=== PATIENT | female | born 1940 | race Asian ===

== ENCOUNTER 2017-08-28 06:13 | Day surgery (SDC) | payer MEDICARE, OTHER ==
[~2017-08-28] VITALS: Ht 152.4 cm; Wt 69.1 kg
[~2017-08-28 06:13] MED LIST: DICLOFENAC SODIUM 0.1% 2.5 ML OPHTHALMIC SOLUTION ONE; MOXIFLOXACIN HCL 0.5% 3 ML OPHTHALMIC SOLUTION ONE; PHENYLEPHRINE HCL 2.5% 2 ML OPHTHALMIC SOLUTION ONE; RINGERS SOLUTION,LACTATED 500 ML IV ONE; TROPICAMIDE 1% 2 ML OPHTHALMIC SOLUTION ONE
[2017-08-28] MEDS ORDERED: TETRACAINE HCL VISCOUS 0.5% 0.6 ML OPHTHALMIC SOLUTION OD ONE (06:14)
[2017-08-28] MEDS ORDERED: HYALURONATE SODIUM 12 MG/ML 0.8 ML SYRINGE IO ONE (06:14)
[2017-08-28] MEDS ORDERED: POVIDONE-IODINE 10% 15 ML SOLUTION UD TP ONE (06:14)
[2017-08-28] MEDS ORDERED: DEXAMETHASONE SOD PHOS 4 MG/ML VIAL IVP ONE (06:14)
[2017-08-28] MEDS ORDERED: LIDOCAINE HCL/PF 1% 2 ML VIAL IM ONE (06:14)
[2017-08-28] MEDS ORDERED: HYALURONATE SOD/CHONDROITIN SOD 0.5 ML VIAL IO ONE (06:14)
[2017-08-28] MEDS ORDERED: MOXIFLOXACIN HCL 0.5% 3 ML OPHTHALMIC SOLUTION OD ONE (06:30)
[2017-08-28] MEDS ORDERED: DICLOFENAC SODIUM 0.1% 2.5 ML OPHTHALMIC SOLUTION OD ONE (06:30)
[2017-08-28] MEDS ORDERED: RINGERS SOLUTION,LACTATED 500 ML IV ONE (06:30)
[2017-08-28] MEDS ORDERED: 0.9% SODIUM CHLORIDE 10 ML SYRINGE IVP PRN (06:30)
[2017-08-28] MEDS: TROPICAMIDE 1% 2 ML OPHTHALMIC SOLUTION OD SCH ×2 (07:03→07:08)
[2017-08-28] MEDS: PHENYLEPHRINE HCL 2.5% 2 ML OPHTHALMIC SOLUTION OD SCH ×2 (07:03→07:08)
[2017-08-28 07:08] LABS: GLUCOMETER DEV NAME(LOC) SDS 5; GLUCOSE,POINT OF CARE 113 MG/DL (70-110)
[2017-08-28] MEDS ORDERED: MIDAZOLAM HCL 2 MG/2 ML VIAL IVP ONE (12:00)
[2017-08-28] MEDS ORDERED: FentaNYL CITRATE-PF 100 MCG/2 ML VIAL IVP ONE (12:00)
== END 2017-08-28 08:50 | disposition home or self-care (01) ==
LOC: SURGERY 06:13
PROVIDERS: ATTEND Specialist
DX: E11.36 Type 2 diabetes mellitus with diabetic cataract (principal); H25.011 Cortical age-related cataract, right eye; I10 Essential (primary) hypertension; M19.90 Unspecified osteoarthritis, unspecified site; E66.3 Overweight; M06.9 Rheumatoid arthritis, unspecified; Z79.84 Long term (current) use of oral hypoglycemic drugs; Z68.29 Body mass index [BMI] 29.0-29.9, adult; Z79.899 Other long term (current) drug therapy
CPT/HCPCS: 65785; 66984; 82962; 93005; C1780; J1100; J2250; J3010; J3490 ×2; J7120

== ENCOUNTER → 2017-09-10 | Outpatient (CLI) | payer MEDICARE, OTHER | END | disposition home or self-care (01) | LOC: RADPV 13:36 | PROVIDERS: ATTEND Family Medicine | DX: M43.16 Spondylolisthesis, lumbar region (principal); M85.88 Other specified disorders of bone density and structure, other site; R07.9 Chest pain, unspecified; R51 Headache; M25.552 Pain in left hip; M77.8 Other enthesopathies, not elsewhere classified; M46.04 Spinal enthesopathy, thoracic region | CPT/HCPCS: 70140; 71101; 72070; 72100; 73503 ==

== ENCOUNTER 2017-12-11 08:18 | Day surgery (SDC) | payer MEDICARE, OTHER ==
[~2017-12-11] VITALS: Ht 154.9 cm; Wt 71.0 kg
[~2017-12-11 08:18] MED LIST changes: -DICLOFENAC SODIUM 0.1% 2.5 ML OPHTHALMIC SOLUTION ONE; +DICLOFENAC SODIUM 0.1% 2.5 ML OPHTHALMIC SOLUTION OS ONE; -MOXIFLOXACIN HCL 0.5% 3 ML OPHTHALMIC SOLUTION ONE; +MOXIFLOXACIN HCL 0.5% 3 ML OPHTHALMIC SOLUTION OS ONE; -PHENYLEPHRINE HCL 2.5% 2 ML OPHTHALMIC SOLUTION ONE; -TROPICAMIDE 1% 2 ML OPHTHALMIC SOLUTION ONE
[2017-12-11] MEDS ORDERED: HYALURONATE SODIUM 10 MG/ML 0.85 ML SYRINGE IO ONE (08:19)
[2017-12-11] MEDS ORDERED: MIDAZOLAM HCL 2 MG/2 ML VIAL IVP ONE (08:19)
[2017-12-11] MEDS ORDERED: VANCOMYCIN HCL 500 MG/VIAL IV ONE (08:19)
[2017-12-11] MEDS ORDERED: POVIDONE-IODINE 10% 15 ML SOLUTION UD TP ONE (08:19)
[2017-12-11] MEDS ORDERED: BALANCED SALT 15 ML OPHTHALMIC IRRIG.SOLN OS ONE (08:19)
[2017-12-11] MEDS ORDERED: EPINEPHrine 1:1,000 [1 MG/ML] AMP IM ONE (08:19)
[2017-12-11] MEDS ORDERED: TETRACAINE HCL VISCOUS 0.5% 0.6 ML OPHTHALMIC SOLUTION OS ONE (08:19)
[2017-12-11] MEDS ORDERED: FentaNYL CITRATE-PF 100 MCG/2 ML VIAL IVP ONE (08:19)
[2017-12-11] MEDS ORDERED: LIDOCAINE/PF 1% 2 ML VIAL IM ONE (08:19)
[2017-12-11] MEDS ORDERED: 0.9% SODIUM CHLORIDE 10 ML VIAL IVP ONE (08:19)
[2017-12-11] MEDS ORDERED: RINGERS SOLUTION,LACTATED 0 ML IV ONE (08:29)
[2017-12-11] MEDS ORDERED: TROPICAMIDE 1% 2 ML OPHTHALMIC SOLUTION ONE ×2 (08:42→08:55)
[2017-12-11] MEDS ORDERED: PHENYLEPHRINE HCL 2.5% 2 ML OPHTHALMIC SOLUTION ONE ×2 (08:42→08:55)
[2017-12-11] MEDS ORDERED: MOXIFLOXACIN HCL 0.5% 3 ML OPHTHALMIC SOLUTION ONE ×2 (08:42→08:55)
[2017-12-11] MEDS ORDERED: RINGERS SOLUTION,LACTATED 500 ML IV ONE (08:42)
[2017-12-11] MEDS ORDERED: DICLOFENAC SODIUM 0.1% 2.5 ML OPHTHALMIC SOLUTION ONE ×2 (08:42→08:55)
[2017-12-11] MEDS: TROPICAMIDE 1% 2 ML OPHTHALMIC SOLUTION OS SCH ×2 (09:18→09:26)
[2017-12-11] MEDS: PHENYLEPHRINE HCL 2.5% 2 ML OPHTHALMIC SOLUTION OS SCH ×2 (09:18→09:26)
[2017-12-11] MEDS ORDERED: VALS160T2 PO (09:40)
[2017-12-11] MEDS ORDERED: SIMV-260 PO (09:40)
[2017-12-11] MEDS ORDERED: CALC-1085 PO (09:40)
[2017-12-11] MEDS ORDERED: ASPI-1182 PO (09:40)
[2017-12-11] MEDS ORDERED: TRAM50TA4 PO (09:40)
[2017-12-11] MEDS ORDERED: DSSL PO (09:40)
[2017-12-11] MEDS ORDERED: METF-960 PO (09:40)
[2017-12-11] MEDS ORDERED: MULT-1259 PO (09:40)
[2017-12-11] MEDS ORDERED: [UNRECOGNIZED DRUG - CODE] PO (09:40)
[2017-12-11] MEDS ORDERED: ACET-66 PO (09:40)
[2017-12-11 10:04] LABS: GLUCOMETER DEV NAME(LOC) SDS 5; GLUCOSE,POINT OF CARE 99 MG/DL (70-110)
== END 2017-12-11 11:10 | disposition home or self-care (01) ==
LOC: SURGERY 08:18
PROVIDERS: ATTEND Specialist
DX: E11.36 Type 2 diabetes mellitus with diabetic cataract (principal); H25.012 Cortical age-related cataract, left eye; I10 Essential (primary) hypertension; M19.90 Unspecified osteoarthritis, unspecified site; Z79.82 Long term (current) use of aspirin; Z79.891 Long term (current) use of opiate analgesic; Z79.01 Long term (current) use of anticoagulants; Z79.84 Long term (current) use of oral hypoglycemic drugs; Z79.4 Long term (current) use of insulin; Z98.41 Cataract extraction status, right eye; Z98.890 Other specified postprocedural states; Z79.899 Other long term (current) drug therapy
CPT/HCPCS: 65785; 66984; 82962; 93005; C1780; J2250; J3010; J7120; J0171; J3370; J3490

== ENCOUNTER 2018-09-25 16:26 | Inpatient (IN) | payer MEDICARE, OTHER ==
[~2018-09-25] VITALS: Ht 157.5 cm; Wt 67.2 kg
[~2018-09-25 16:26] MED LIST changes: +ACET-66 PO; +ASPI-1182 PO; +CALC-1085 PO; -DICLOFENAC SODIUM 0.1% 2.5 ML OPHTHALMIC SOLUTION OS ONE; +DSSL PO; +METF-960 PO; -MOXIFLOXACIN HCL 0.5% 3 ML OPHTHALMIC SOLUTION OS ONE; +MULT-1259 PO; -RINGERS SOLUTION,LACTATED 500 ML IV ONE; +SIMV-260 PO; +TRAM50TA4 PO; +VALS160T2 PO; +[UNRECOGNIZED DRUG - CODE] PO
[2018-09-25 16:39] LABS: GLUCOSE,POINT OF CARE 89 MG/DL (70-110)
[2018-09-25] MEDS ORDERED: RANO500T3 PO (16:45)
[2018-09-25] MEDS ORDERED: ROSU10TA22 PO (16:45)
[2018-09-25] MEDS ORDERED: DULO60CA44 PO (16:45)
[2018-09-25] MEDS ORDERED: AMLO10TA7 PO (16:45)
[2018-09-25] MEDS ORDERED: METO50 PO (16:45)
[2018-09-25] MEDS ORDERED: DONE10TA8 PO (16:45)
[2018-09-25] MEDS ORDERED: LORA10TA7 PO (16:45)
[2018-09-25] MEDS ORDERED: TOLT2CAP27 PO (16:45)
[2018-09-25 17:28] LABS: BASOPHILS % (AUTO) 0.9 % (0.0-2.0); EOSINOPHILS % (AUTO) 2.3 % (1.0-6.0); HEMATOCRIT 39.5 % (36-46); HEMOGLOBIN 12.9 g/dL (12.0-16.0); LYMPHOCYTES % (AUTO) 43.8 % (22.0-44.0); MEAN CORPUSCULAR HEMOGLOBIN 30.1 pg (26.0-34.0); MEAN CORPUSCULAR HGB CONC 32.6 G/dL (31.0-37.0); MEAN CORPUSCULAR VOLUME 92 fL (80-100); MONOCYTES # (AUTO) 0.7 K/uL (0.1-1.0); MONOCYTES % (AUTO) 10.3 % (2.0-9.0); NEUTROPHILS % (AUTO) 42.7 % (40.0-70.0); PLATELET COUNT (AUTO) 205 K/uL (150-450); RED BLOOD CELL COUNT(AUTO) 4.28 MIL/uL (4.00-5.20); RED CELL DISTRIBUTION WIDTH 13.6 % (11.5-14.5)
[2018-09-25 17:33] LABS: CALCIUM, TOTAL 9.9 mg/dL (8.8-10.5); CREATININE 0.96 mg/dL (0.60-1.30); POTASSIUM 3.8 mmol/L (3.5-5.1)
[2018-09-25 17:39] LABS: ALBUMIN 4.2 g/dL (3.4-5.0); BILIRUBIN,TOTAL 0.5 mg/dL (0.1-1.0); TOTAL PROTEIN, SERUM 7.7 g/dL (6.4-8.2)
[2018-09-25 17:51] LABS: APPEARANCE,URINE CLOUDY (CLEAR); BILIRUBIN,URINE NEGATIVE (NEGATIVE); GLUCOSE, URINE (UA) NEGATIVE (NEGATIVE); KETONES,URINE NEGATIVE (NEGATIVE); LEUKOCYTE ESTERASE ,URINE MODERATE (NEGATIVE); NITRATE,URINE POSITIVE (NEGATIVE); OCCULT BLOOD,URINE NEGATIVE (NEGATIVE); PH,URINE 6.5 (5.0-8.0); PROTEIN,URINE NEGATIVE (NEGATIVE); UROBILINOGEN,URINE 0.2 mg/dL (<=1.0)
[2018-09-25 17:56] LABS: BACTERIA,URINE Many /HPF (None Seen); RBC,URINE 0-2 /HPF (0-2); SQUAMOUS EPITHELIAL CELL,UR Few /LPF (None Seen)
[2018-09-25] MEDS ORDERED: IOVERSOL 350 MG/ML 100 ML VIAL ONE (18:29)
[2018-09-25] MEDS ORDERED: SODIUM CHLORIDE 0.9% 100 ML ONE (18:30)
[2018-09-25] MEDS ORDERED: ASPIRIN 81 MG CHEWABLE TABLET PO ONE (19:15)
[2018-09-25] MEDS ORDERED: NITROGLYCERIN 2% (1 GM=INCH) PACKET TP ONE (19:15)
[2018-09-25] MEDS ORDERED: CefTRIAXone 1 GM/DEXTROSE 50 ML IV ONE (19:15)
[2018-09-25] MEDS ORDERED: 0.9% SODIUM CHLORIDE 10 ML SYRINGE IVP PRN ×2 (21:00→22:30)
[2018-09-25] MEDS ORDERED: ACETAMINOPHEN 325 MG TABLET PO PRN ×2 (21:00→22:30)
[2018-09-25] MEDS ORDERED: INSULIN LISPRO 100 UNITS/ML SQ PRN (22:15)
[2018-09-25] MEDS ORDERED: TraMADol HCL 50 MG TABLET PO PRN (22:15)
[2018-09-25] MEDS ORDERED: DEXTROSE 50%-WATER 25 GM/50 ML SYRINGE IVP PRN (22:15)
[2018-09-25] MEDS ORDERED: IPRATROPIUM BROMIDE 0.5 MG/2.5 ML NEB SOLUTION NEB PRN (22:30)
[2018-09-25] MEDS ORDERED: MAGNESIUM HYDROXIDE SUSPENSION 30 ML UDCUP PO PRN (22:30)
[2018-09-25] MEDS ORDERED: ALBUTEROL SULFATE 2.5 MG/0.5 ML NEB SOLUTION NEB PRN (22:30)
[2018-09-25] MEDS ORDERED: BISACODYL 10 MG RECTAL RECTAL SUPPOSITORY PR PRN (22:30)
[2018-09-25] MEDS ORDERED: ONDANSETRON HCL 4 MG/2 ML VIAL IVP PRN (22:30)
[2018-09-25] MEDS: HEPARIN SODIUM,PORCINE 5,000 UNITS/ML VIAL SQ SCH (23:52)
[2018-09-26 00:10] VITALS: BP 142/70
[2018-09-26] MEDS: TraMADol HCL 50 MG TABLET PO PRN ×2 (05:04→08:34)
[2018-09-26 05:24] VITALS: BP 140/71
[2018-09-26 06:03] LABS: BASOPHILS % (AUTO) 0.9 % (0.0-2.0); EOSINOPHILS % (AUTO) 2.7 % (1.0-6.0); HEMATOCRIT 36.5 % (36-46); HEMOGLOBIN 11.8 g/dL (12.0-16.0); LYMPHOCYTES # (AUTO) 2.9 K/uL (1.0-4.8); LYMPHOCYTES % (AUTO) 43.9 % (22.0-44.0); MEAN CORPUSCULAR HGB CONC 32.5 G/dL (31.0-37.0); MEAN CORPUSCULAR VOLUME 93 fL (80-100); MONOCYTES # (AUTO) 0.6 K/uL (0.1-1.0); MONOCYTES % (AUTO) 8.8 % (2.0-9.0); NEUTROPHILS # (AUTO) 2.9 K/uL (1.8-7.7); NEUTROPHILS % (AUTO) 43.7 % (40.0-70.0); PLATELET COUNT (AUTO) 200 K/uL (150-450); RED BLOOD CELL COUNT(AUTO) 3.95 MIL/uL (4.00-5.20)
[2018-09-26 06:14] LABS: ALANINE AMINOTRANSFERASE 25 U/L (12-78); ALBUMIN 3.6 g/dL (3.4-5.0); ALKALINE PHOSPHATASE 61 U/L (46-116); ANION GAP 10 mmol/L (8-16); ASPARTATE AMINOTRANSFERASE 17 U/L (15-37); BILIRUBIN,TOTAL 0.6 mg/dL (0.1-1.0); CALCIUM, TOTAL 9.5 mg/dL (8.8-10.5); CARBON DIOXIDE 26 mmol/L (22-29); CHLORIDE 103 mmol/L (98-107); CHOL/HDL RATIO 2.1 (3.9-5.7); CHOLESTEROL 114 mg/dL (131-200); CREATININE 0.75 mg/dL (0.60-1.30); GLUCOSE,RANDOM 101 mg/dL (70-110); HDL CHOLESTEROL 54 mg/dL (40-60); LDL CHOL (CALC.) 38 mg/dL (0-130); POTASSIUM 3.6 mmol/L (3.5-5.1); SODIUM SERUM 139 mmol/L (136-145); TOTAL PROTEIN, SERUM 6.7 g/dL (6.4-8.2); TRIGLYCERIDES 110 mg/dL (15-150); UREA NITROGEN, BLOOD 11 mg/dL (7-18)
[2018-09-26 06:16] LABS: GLOMERULAR FILTR. RATE CALC > 60 mL/min (>60)
[2018-09-26 07:20] VITALS: BP 131/66
[2018-09-26] MEDS: MULTIVITAMINS WITH MINERALS, THERAPEUTIC TABLET PO SCH (08:22)
[2018-09-26] MEDS: RANOLAZINE 500 MG ER TABLET PO SCH ×2 (08:22→20:40)
[2018-09-26] MEDS: DOCUSATE SODIUM 100 MG CAPSULE PO SCH ×2 (08:22→20:41)
[2018-09-26] MEDS: LORATADINE 10 MG TABLET PO SCH (08:22)
[2018-09-26] MEDS: ASPIRIN 81 MG EC TABLET PO SCH (08:22)
[2018-09-26] MEDS: FAMOTIDINE 20 MG TABLET PO SCH ×2 (08:23→20:41)
[2018-09-26] MEDS: METOPROLOL TARTRATE 50 MG TABLET PO SCH (08:23)
[2018-09-26] MEDS: DULoxetine HCL 60 MG CAPSULE PO SCH (08:23)
[2018-09-26] MEDS: VALSARTAN 160 MG TABLET PO SCH (08:23)
[2018-09-26] MEDS: DONEPEZIL HCL 10 MG TABLET PO SCH (08:23)
[2018-09-26] MEDS: TOLTERODINE TARTRATE 2 MG ER CAPSULE PO SCH (08:23)
[2018-09-26] MEDS: HEPARIN SODIUM,PORCINE 5,000 UNITS/ML VIAL SQ SCH ×2 (08:24→20:42)
[2018-09-26] MEDS: CALCIUM OYSTER SHELL 250 MG-VIT D3 125 UNITS TABLET PO SCH (08:24)
[2018-09-26] MEDS ORDERED: AmLODIPine BESYLATE 10 MG TABLET PO SCH (09:00)
[2018-09-26] MEDS ORDERED: MULTIVITAMINS WITH MINERALS, THERAPEUTIC TABLET PO SCH (09:00)
[2018-09-26] MEDS ORDERED: CALCIUM OYSTER SHELL 250 MG-VIT D3 125 UNITS TABLET PO SCH (09:00)
[2018-09-26] MEDS ORDERED: VALSARTAN 160 MG TABLET PO SCH (09:00)
[2018-09-26] MEDS ORDERED: ASPIRIN 81 MG EC TABLET PO SCH (09:00)
[2018-09-26] MEDS: AmLODIPine BESYLATE 10 MG TABLET PO SCH (09:00)
[2018-09-26] MEDS ORDERED: DULoxetine HCL 60 MG CAPSULE PO SCH (09:00)
[2018-09-26] MEDS ORDERED: LORATADINE 10 MG TABLET PO SCH (09:00)
[2018-09-26] MEDS ORDERED: DONEPEZIL HCL 10 MG TABLET PO SCH (09:00)
[2018-09-26] MEDS ORDERED: METOPROLOL TARTRATE 50 MG TABLET PO SCH (09:00)
[2018-09-26] MEDS ORDERED: RANOLAZINE 500 MG ER TABLET PO SCH (09:00)
[2018-09-26] MEDS ORDERED: TOLTERODINE TARTRATE 2 MG ER CAPSULE PO SCH (09:00)
[2018-09-26] MEDS ORDERED: GARL1250 PO (10:27)
[2018-09-26] MEDS ORDERED: DSS100 PO (10:27)
[2018-09-26 10:48] VITALS: BP 119/56
[2018-09-26 11:24] LABS: GLUCOMETER DEV NAME(LOC) 5S.1; GLUCOSE,POINT OF CARE 102 MG/DL (70-110)
[2018-09-26 11:39] LABS: GLUCOMETER DEV NAME(LOC) 5N.1; GLUCOSE,POINT OF CARE 124 MG/DL (70-110)
[2018-09-26 12:27] LABS: HEMOGLOBIN A1C 5.8 % (4.5-6.2)
[2018-09-26 16:00] VITALS: BP 133/67
[2018-09-26 19:18] VITALS: BP 145/77
[2018-09-26 19:39] LABS: GLUCOMETER DEV NAME(LOC) 5N.1; GLUCOSE,POINT OF CARE 106 MG/DL (70-110)
[2018-09-26] MEDS ORDERED: CefTRIAXone 1 GM/DEXTROSE 50 ML IV SCH (20:00)
[2018-09-26] MEDS ORDERED: SODIUM CHLORIDE 0.9% 250 ML IV ONE (20:49)
[2018-09-26] MEDS ORDERED: SIMVASTATIN 20 MG TABLET PO SCH ×2 (21:00)
[2018-09-26] MEDS ORDERED: GARLIC PO SCH ×2 (21:00)
[2018-09-27 00:15] VITALS: BP 102/62
[2018-09-27 04:06] VITALS: BP 130/63
[2018-09-27 07:14] VITALS: BP 124/69
[2018-09-27] MEDS: VALSARTAN 160 MG TABLET PO SCH (08:39)
[2018-09-27] MEDS: ASPIRIN 81 MG EC TABLET PO SCH (08:39)
[2018-09-27] MEDS: METOPROLOL TARTRATE 50 MG TABLET PO SCH (08:39)
[2018-09-27] MEDS: DOCUSATE SODIUM 100 MG CAPSULE PO SCH (08:39)
[2018-09-27] MEDS: AmLODIPine BESYLATE 10 MG TABLET PO SCH (08:39)
[2018-09-27] MEDS: FAMOTIDINE 20 MG TABLET PO SCH (08:39)
[2018-09-27] MEDS: DONEPEZIL HCL 10 MG TABLET PO SCH (08:40)
[2018-09-27] MEDS: MULTIVITAMINS WITH MINERALS, THERAPEUTIC TABLET PO SCH (08:40)
[2018-09-27] MEDS: LORATADINE 10 MG TABLET PO SCH (08:40)
[2018-09-27] MEDS: HEPARIN SODIUM,PORCINE 5,000 UNITS/ML VIAL SQ SCH (08:40)
[2018-09-27] MEDS: TOLTERODINE TARTRATE 2 MG ER CAPSULE PO SCH (08:41)
[2018-09-27] MEDS: DULoxetine HCL 60 MG CAPSULE PO SCH (08:41)
[2018-09-27] MEDS: CALCIUM OYSTER SHELL 250 MG-VIT D3 125 UNITS TABLET PO SCH (08:41)
[2018-09-27] MEDS: RANOLAZINE 500 MG ER TABLET PO SCH (08:41)
[2018-09-27 10:44] LABS: GLUCOMETER DEV NAME(LOC) 5N.1; GLUCOSE,POINT OF CARE 115 MG/DL (70-110)
[2018-09-27 11:14] VITALS: BP 130/66
[2018-09-27] MEDS ORDERED: CIPR500S5 PO (14:48)
[2018-09-27 19:54] LABS: GLUCOMETER DEV NAME(LOC) 5S.1; GLUCOSE,POINT OF CARE 184 MG/DL (70-110)
[2018-09-27 19:54] LABS: GLUCOMETER DEV NAME(LOC) 5S.1; GLUCOSE,POINT OF CARE 103 MG/DL (70-110)
== END 2018-09-27 15:45 | disposition home or self-care (01) | DRG 690 ==
LOC: EMS 16:28 → 5S 21:12 → EMS 22:14
PROVIDERS: ADMIT Internal Medicine; ATTEND Internal Medicine
DX: N39.0 Urinary tract infection, site not specified (principal); I25.110 Atherosclerotic heart disease of native coronary artery with unstable angina pectoris; R07.89 Other chest pain; B96.89 Other specified bacterial agents as the cause of diseases classified elsewhere; I10 Essential (primary) hypertension; E78.5 Hyperlipidemia, unspecified; F32.9 Major depressive disorder, single episode, unspecified; E11.9 Type 2 diabetes mellitus without complications; F03.90 Unspecified dementia, unspecified severity, without behavioral disturbance, psychotic disturbance, mood disturbance, and anxiety; B96.20 Unspecified Escherichia coli [E. coli] as the cause of diseases classified elsewhere; E78.00 Pure hypercholesterolemia, unspecified; F45.9 Somatoform disorder, unspecified; I27.20 Pulmonary hypertension, unspecified; Z79.82 Long term (current) use of aspirin; Z79.899 Other long term (current) drug therapy
CPT/HCPCS: 71260; 76700; 83036; 84145; 87086; 92610; 93005; 93306; G0378; J0696; J1644; J7050

== ENCOUNTER → 2018-10-02 | Outpatient (CLI) | payer MEDICARE, OTHER ==
[~2018-10-02] MED LIST changes: +AMLO10TA7 PO; +CIPR500S5 PO; +DONE10TA8 PO; +DSS100 PO; -DSSL PO; +METO50 PO; +RANO500T3 PO; +ROSU10TA22 PO; -SIMV-260 PO; -TRAM50TA4 PO; -VALS160T2 PO; -[UNRECOGNIZED DRUG - CODE] PO
== END | disposition home or self-care (01) ==
LOC: RADPV 11:33
PROVIDERS: ATTEND Family Medicine
DX: Z04.3 Encounter for examination and observation following other accident (principal)
CPT/HCPCS: 70140